=== PATIENT | female | born 1990 | race Caucasian/White ===

== ENCOUNTER 2022-03-22 09:44 | Emergency (ER) | payer OTHER ==
[~2022-03-22] VITALS: Ht 170.2 cm; Wt 67.0 kg
[2022-03-22] MEDS ORDERED: FLUC150T46 MT (11:34)
[2022-03-22 11:58] LABS: CLARITY URINE CLEAR (CLEAR); COLOR URINE YELLOW (YELLOW); KETONES URINE TRACE (NEGATIVE); LEUKOCYTE ESTERASE URINE NEGATIVE (NEGATIVE); NITRITE URINE NEGATIVE (NEGATIVE); OCCULT BLOOD URINE 2+ (NEGATIVE); PROTEIN URINE NEGATIVE (NEGATIVE); UROBILINOGEN URINE 0.2 E.U./dL (0.2-1.0)
[2022-03-22 12:20] LABS: *BARBITURATES SCREEN URINE NEGATIVE (NEGATIVE); *BENZODIAZEPINES SCREEN URINE NEGATIVE (NEGATIVE); *COCAINE SCREEN URINE NEGATIVE (NEGATIVE); CANNABINOID URINE SCREEN NEGATIVE (NEGATIVE); METHADONE URINE SCREEN NEGATIVE (NEGATIVE); OPIATES URINE SCREEN NEGATIVE (NEGATIVE); PHENCYCLIDINE URINE SCREEN NEGATIVE (NEGATIVE)
[2022-03-22 12:43] LABS: *AMPHETAMINES SCREEN URINE PRESUMTIVE POSITIVE (NEGATIVE)
[2022-03-22 13:00] VITALS: BP 118/88
[2022-03-24 07:08] LABS: NEISSERIA GONORRHOEAE NAA Negative (Negative)
[2022-03-24 10:06] LABS: HIV SCREEN 4G Non Reactive (Non Reactive)
== END 2022-03-22 13:20 | disposition home or self-care (01) ==
LOC: ER 09:44
DX: N76.0 Acute vaginitis (principal)
CPT/HCPCS: 80305; 81003; 81025; 86592; 87210; 87389; 87491; 87591; 99283